=== PATIENT | female | born 1960 | race Caucasian/White ===

== ENCOUNTER 2017-01-09 16:15 | Emergency (ER) ==
--- NOTE | 2017-01-09 16:51 | PROVIDER DOCUMENTATION ---
HPI-Abdominal Pain/GI Problem - General Chief Complaint: Flank Pain Stated Complaint: RT SIDE BACK/ABD PAIN Time Seen by Provider: 01/09/17 16:29 Source: patient Allergies/Adverse Reactions: Patient Allergies Allergy/AdvReac Type Severity Reaction Status Date / Time No Known Allergies Allergy Verified 01/09/17 16:39 Home Medications: Home Medication List Medication Instructions Recorded Confirmed Last Taken Type Famotidine [Pepcid] 20 mg PO DAILY 01/09/17 01/09/17 01/09/17 History Fenofibrate 160 mg PO DAILY 01/09/17 01/09/17 01/09/17 History Hydrocodone/APAP 5 mg/325 mg 1 each PO Q6H PRN PRN #14 tablet 01/09/17 Unknown Rx [[place]-5] Lisinopril/Hydrochlorothiazide 1 each PO DAILY 01/09/17 01/09/17 01/09/17 History [Lisinopril-Hctz 20-25 mg Tab] Metformin HCl 1,000 mg PO BID 01/09/17 01/09/17 01/09/17 History Ondansetron [Zofran] 4 mg PO Q6H PRN PRN #20 tablet 01/09/17 Unknown Rx Pioglitazone HCl [Actos] 45 mg PO DAILY 01/09/17 01/09/17 01/09/17 History - History of Present Illness-ABD Nature of Presenting Problems: 56 y/o F with history of HTN, DM, crohns (s/p colectomy with colostomy 12 years ago), GERD presents with right flank pain that began today. Patient states the pain began in her lower back this morning and then moved to her right flank and now radiating into the RUQ. The pain is described as pressure that is constant. She had a cholecystectomy (15 years ago) She saw her PCP (Dr. Orr) today who did labs and said "everything looked OK" and prescribed antibiotics (unknown name). She took one dose of the antibiotic, but symptoms are worsening. She also admits nausea. Denies vomiting, dysuria, history of kidney stones. Reports normal output from the colostomy. LMP: n/a (hysterectomy) Abdominal Pain Onset Location: reports: flank Pain Radiation: reports: RUQ Quality of Pain: reports: pressure Severity in ED: reports: moderate Onset/Duration: reports: this morning Timing: reports: still present, constant Activities at Onset: reports: none Exposure to sick contacts?: No Modifying Factors: improves with: nothing Associated Symptoms: reports: back/neck pain (low back), nausea. denies: fever/ chills, vomiting Last BM: other (normal output from colostomy bag) Dark Stools Present?: reports: none noticed Recently seen or treated by another doctor?: Yes Review of Systems - Adult - REVIEW OF SYSTEMS - ADULT Constitutional: reports: no symptoms reported. denies: chills, fever Eyes: reports: no symptoms reported Ears, Nose, Mouth & Throat: reports: no symptoms reported Cardiovascular: reports: no symptoms reported. denies: chest pain Respiratory: reports: no symptoms reported. denies: cough, shortness of breath , wheezing Gastrointestinal: reports: see HPI Genitourinary: reports: flank pain. denies: dysuria, frequency, hematuria, urinary retention, urgency Musculoskeletal: reports: back pain. denies: muscle weakness Integumentary: reports: no symptoms reported. denies: itching, rash Neurological: reports: no symptoms reported. denies: dizziness/vertigo, headache/migraines, loss of balance, numbness Psychiatric: reports: no symptoms reported Endocrine: reports: no symptoms reported Hematologic/Lymphatic: reports: no symptoms reported Allergic/Immunologic: reports: no symptoms reported All Other Systems: Reviewed and Negative Past History - Adult - PAST MEDICAL HISTORY-ADULT Review of Records: reports: Nursing Assessment Review, Medications Reviewed Physical Exam-General - PHYSICAL EXAM-ADULT Initial Vital Signs Reviewed: Yes - CONSTITUTIONAL General Appearance: appears well, alert, no apparent distress - EYES Eyes: PERRL/EOMI, pink conjunctivae - HEAD, EARS, NOSE, MOUTH & THROAT HENMT: normocephalic/atraumatic, moist mucous membranes - NECK Neck: non-tender, full range of motion, supple - RESPIRATORY Respiratory: chest non-tender, lungs clear, normal breath sounds, no pleuratic chest pain, no respiratory distress, no accessory muscle use - CARDIOVASCULAR Cardiovascular: normal peripheral pulses, regular rate, rhythm, no edema - GASTROINTESTINAL (ABDOMEN) Abdominal Exam: tenderness (right/periumbilical) - MUSCULOSKELETAL Back Exam: no CVA tenderness (no tenderness, in fact patient states it feels good when I papate the right flank) Extremity: normal gait, normal inspection - SKIN Integumentary: normal color, normal turgor, warm/dry - NEUROLOGIC Neurologic: grossly normal, no motor/sensory deficits - PSYCHIATRIC Psych/Mental Status: normal mood/affect, normal thought content, normal thought process, oriented x 3 Progress - PLAN OF CARE/RESULTS Progress/Plan/Lab Results: Laboratory Tests 01/09/17 01/09/17 01/09/17 17:28 17:28 17:55 WBC 7.97 RBC 4.82 Hgb 14.7 Hct 42.7 MCV 88.6 MCH 30.5 MCHC 34.4 RDW Std Deviation 12.1 Plt Count 240 MPV 9.9 Immature Gran % (Auto) 0.0 Neut % (Auto) 69.7 Lymph % (Auto) 22.5 [place] % (Auto) 6.3 Eos % (Auto) 1.1 Baso % (Auto) 0.4 Immature Gran # (Auto) 0.00 Neut # (Auto) 5.56 Lymph # (Auto) 1.79 [place] # (Auto) 0.50 Eos # (Auto) 0.09 Baso # (Auto) 0.03 Sodium 136 Potassium 3.7 Chloride 96 L Carbon Dioxide 26 Anion Gap 14 BUN 13 Creatinine 0.9 Estimated GFR/1.73 m2 > 60 BUN/Creatinine Ratio 14 Glucose 260 H Calculated Osmolality 281 Calcium 9.7 Total Bilirubin 0.34 AST 16 ALT 18 Alkaline Phosphatase 85 Total Protein 7.0 Albumin 4.2 Globulin 2.8 Albumin/Globulin Ratio 1.5 Lipase 100 H Urine Source CLEAN CATCH Urine Color YELLOW Urine Turbidity CLEAR Urine pH 5.0 Ur Specific [place] 1.021 Urine Protein NEGATIVE Ur Glucose (Stick) >1000 A Ur Ketones (Stick) NEGATIVE Urine Blood TRACE A Urine Nitrite NEGATIVE Urine Bilirubin NEGATIVE Urobilinogen Dipstick NORMAL Urine Leukocytes NEGATIVE Urine WBC (Auto) <10 Urine RBC (Auto) <10 U Epithel Cells (Auto) <10 Urine Bacteria (Auto) NEGATIVE Orders Category Date Time Status IV Insertion ORDERED Care 01/09/17 16:56 Active RENAL STONE SEARCH [CT] Stat Exams 01/09/17 16:56 Taken CBC WITH ELECTRONIC DIFF [HEME] Stat Lab 01/09/17 17:28 Completed COMPREHENSIVE METABOLIC PANEL [CHEM] Stat Lab 01/09/17 17:28 Completed LIPASE [CHEM] Stat Lab 01/09/17 17:28 Completed URINALYSIS W/POSS RFLX CULT [URINALYSIS] Stat Lab 01/09/17 17:55 Completed 0.9% Sodium Chloride Inj [Ns] 1,000 ml Med 01/09/17 16:58 Discontinued IV 999 mls/hr Ketorolac [Toradol] Med 01/09/17 17:10 Discontinued 30 mg .ROUTE .STK-MED ONE Ketorolac [Toradol] Med 01/09/17 16:56 Discontinued 30 mg IV NOW ONE Ondansetron [Zofran] Med 01/09/17 16:56 Discontinued 4 mg IV NOW ONE Vital Signs Temp Pulse Resp BP Pulse Ox 01/09/17 16:21 98.4 F 88 18 154/84 100 No Known Allergies Allergy (Verified 01/09/17 16:39) Famotidine [Pepcid] 20 mg PO DAILY 01/09/17 Fenofibrate 160 mg PO DAILY 01/09/17 Lisinopril/Hydrochlorothiazide [Lisinopril-Hctz 20-25 mg Tab] 1 each PO DAILY Metformin HCl 1,000 mg PO BID 01/09/17 Pioglitazone HCl [Actos] 45 mg PO DAILY 01/09/17 I&O 01/08/17 01/09/17 01/10/17 06:59 06:59 06:59 Output Total 70 Balance -70 Laboratory 01/09/17 01/09/17 01/09/17 17:55 17:28 17:28 WBC 7.97 RBC 4.82 Hgb 14.7 Hct 42.7 MCV 88.6 MCH 30.5 MCHC 34.4 RDW Std Deviation 12.1 Plt Count 240 MPV 9.9 Immature Gran % (Auto) 0.0 Neut % (Auto) 69.7 Lymph % (Auto) 22.5 [place] % (Auto) 6.3 Eos % (Auto) 1.1 Baso % (Auto) 0.4 Immature Gran # (Auto) 0.00 Neut # (Auto) 5.56 Lymph # (Auto) 1.79 [place] # (Auto) 0.50 Eos # (Auto) 0.09 Baso # (Auto) 0.03 Sodium 136 Potassium 3.7 Chloride 96 L Carbon Dioxide 26 Anion Gap 14 BUN 13 Creatinine 0.9 Estimated GFR/1.73 m2 > 60 BUN/Creatinine Ratio 14 Glucose 260 H Calculated Osmolality 281 Calcium 9.7 Total Bilirubin 0.34 AST 16 ALT 18 Alkaline Phosphatase 85 Total Protein 7.0 Albumin 4.2 Globulin 2.8 Albumin/Globulin Ratio 1.5 Lipase 100 H Urine Source CLEAN CATCH Urine Color YELLOW Urine Turbidity CLEAR Urine pH 5.0 Ur Specific [place] 1.021 Urine Protein NEGATIVE Ur Glucose (Stick) >1000 A Ur Ketones (Stick) NEGATIVE Urine Blood TRACE A Urine Nitrite NEGATIVE Urine Bilirubin NEGATIVE Urobilinogen Dipstick NORMAL Urine Leukocytes NEGATIVE Urine WBC (Auto) <10 Urine RBC (Auto) <10 U Epithel Cells (Auto) <10 Urine Bacteria (Auto) NEGATIVE - REASSESSMENT Reassessment #1 Time Reassessed: 18:20 (VSS. Labs show elevated BG and mildly elevated lipase ( 100). Patient reports pain is much better after toradol, and nausea resolved with zofran. No vomiting in ER. Discussed patient with Dr. Vega. Will discharge home with symptomatic treatment and have patient continue meds prescribed by PCP. Patient agrees to follow up with her PCP and return to ER if new/worsening symptoms occur.) - CT/MRI 1 CT Study: Renal Stone CT Results: no acute process Departure - Departure Time of Disposition Order: 18:17 DIAGNOSIS: Flank pain, Elevated lipase Disposition: HOME 01 Certified Medical Emergency: Emergent Condition: Good Additional Instructions: Follow up with your PCP for recheck of lipase and to follow up on diabetes. If symptoms worsen or new symptoms occur, return to the ER. ED Follow Up Instructions: You have been treated by a care provider in the Emergency Department. These instructions are being provided to you so you can have an understanding of how to care for yourself upon discharge. Upon discharge from the Emergency Department, you are responsible for making arrangements for follow-up care by a physician of your choice. Take all prescribed medications as directed. Return to the Emergency Department immediately for any new or worsening symptoms. You may call the Physician Referral phone number at [phone] to obtain a list of Physicians who are taking new patients. Prescriptions: Hydrocodone/APAP 5 mg/325 mg [[place]-5] 1 each PO Q6H PRN PRN #14 tablet PRN Reason: Pain Ondansetron [Zofran] 4 mg PO Q6H PRN PRN #20 tablet PRN Reason: Nausea Attestation - Physician/ BEATRICE Attestation Patient care was provided by Advanced Practice Provider:: Yes Advanced Practice Provider:: Mae Spangler Advanced Practice Provider documentation review:: The Mid-level provider documentation, treatment plan and medical decision making was reviewed by the physician who agrees with all treatment and medical decision making by the MLP.
[2017-01-09] MEDS ORDERED: ZOFRAN IV ONE (16:56)
[2017-01-09] MEDS ORDERED: TORADOL IV ONE (16:56)
[2017-01-09] MEDS ORDERED: NS 1,000 ML IV ONE (16:58)
[2017-01-09] MEDS ORDERED: TORADOL ONE (17:10)
[2017-01-09 17:43] LABS: MANUAL DIFF NEEDED? NO
[2017-01-09 17:45] LABS: BASO% 0.4 % (0.0-0.8); EOS# 0.09 X1000 (0.0-0.7); EOS% 1.1 % (0.0-10.0); HEMATOCRIT 42.7 % (37.0-47.0); HEMOGLOBIN 14.7 g/dL (12.0-16.0); LYMPH# 1.79 X1000 (1.2-3.4); LYMPH% 22.5 % (20.5-51.1); MCH 30.5 PG (27-31); MCHC 34.4 g/dL (33-37); MCV 88.6 FL (81-99); MONO% 6.3 % (1.7-9.3); MPV 9.9 FL (7.4-10.4); NEUT% 69.7 % (42.2-75.2); PLT 240 X1000 (130-400); RBC 4.82 XMIL (4.2-5.4)
[2017-01-09 18:00] LABS: URINE CULTURE NEEDED? NO; URINE MICRO REVIEW NEEDED? NO; URINE SOURCE CLEAN CATCH
[2017-01-09 18:06] LABS: BILIRUBIN URINE NEGATIVE (NEGATIVE); BLOOD URINE TRACE (NEGATIVE); COLOR YELLOW; GLUCOSE URINE >1000 mg/dL (NEGATIVE); LEUKOCYTES URINE NEGATIVE (NEGATIVE); NITRITE URINE NEGATIVE (NEGATIVE); PROTEIN URINE NEGATIVE (NEGATIVE); SP GRAVITY URINE 1.021; TURBIDITY URINE CLEAR (CLEAR); UROBILINOGEN URINE NORMAL (NORMAL)
[2017-01-09 18:08] LABS: UR EPITHELIAL CELLS <10 /HPF (<10); URINE BACTERIA NEGATIVE /HPF; URINE RBC <10 /HPF (<10); URINE WBC <10 /HPF (<10)
[2017-01-09 18:09] LABS: AGAP 14; ALBUMIN 4.2 g/dL (3.5-5.0); ALKALINE PHOSPHATASE 85 U/L (32-104); BUN 13 mg/dL (8-22); CALCIUM 9.7 mg/dL (8.8-10.2); CHLORIDE 96 mmol/L (98-107); COSMO 281; GOT 16 U/L (10-30); GPT 18 U/L (10-36); LIPASE 100 U/L (13-60); POTASSIUM 3.7 mmol/L (3.5-5.1); SODIUM 136 mmol/L (136-145); TCO2 26 mmol/L (25-35); TOTAL BILIRUBIN 0.34 mg/dL (0.20-1.00)
[2017-01-09 18:34] VITALS: BP 126/68
--- NOTE | 2017-01-10 07:47 | Diag Imaging Result Document ---
PROCEDURE NAME: RENAL STONE SEARCH - 01/09/2017 CT ABDOMEN AND PELVIS: A CT dose reduction protocol was used. COMPARISON: 12/20/2012. FINDINGS: The lung bases are grossly clear and the heart size is normal. Stable fatty change of the liver. Grossly stable, large left renal cysts. No radiodense renal stone. No hydronephrosis or hydroureter. Stable changes of colectomy and right lower quadrant ileostomy. Stable mild peristomal small bowel herniation here without obstruction. No adenopathy. Bony structures are intact. IMPRESSION: Fatty liver. Large left renal cyst. Negative for renal stone disease. No acute disease or change from prior. MTDD
== END 2017-01-09 18:48 | disposition home or self-care (01) ==
LOC: ED 16:15
DX: R10.9 Unspecified abdominal pain (principal); R74.8 Abnormal levels of other serum enzymes; M54.5 Low back pain; R10.11 Right upper quadrant pain; R11.0 Nausea; R10.815 Periumbilic abdominal tenderness; I10 Essential (primary) hypertension; E11.9 Type 2 diabetes mellitus without complications; K21.9 Gastro-esophageal reflux disease without esophagitis; Z79.899 Other long term (current) drug therapy; N39.0 Urinary tract infection, site not specified; E11.65 Type 2 diabetes mellitus with hyperglycemia
CPT/HCPCS: 36415; 74176; 80048; 80053; 81001; 83690; 85025; 87088; J1885; J2405; J7030